=== PATIENT | male | born 1990 | race African-American/Black ===

== ENCOUNTER 2024-09-25 12:57 | Emergency (ER) | payer OTHER, SELFPAY ==
[2024-09-25] MEDS ORDERED: Ketorolac Tromethamine 30 MG (1 mL) VIAL ONE (13:28)
== END 2024-09-25 14:04 | disposition home or self-care (01) ==
LOC: CSHERS 12:57
DX: K02.9 Dental caries, unspecified (principal)
CPT/HCPCS: 96372; 99282; J1885